=== PATIENT | female | born 1980 | race Caucasian/White ===

== ENCOUNTER 2018-08-21 15:27 | Outpatient (CLI) | payer OTHER ==
--- NOTE | 2018-08-21 17:41 | CT ---
PARANASAL SINUS CT WITH AND WITHOUT CONTRAST: INDICATION: Chronic sinusitis. FINDINGS: Frontal sinus, ethmoid sinus, maxillary sinus, and the sphenoid sinus are clear. No evidence of late ral mastoid effusion. There is leftward nasal septal deviation with associated nasal septal spur. IMPRESSION: No acute paranasal sinus inflammatory disease. POS: [facility]
== END 2018-08-21 15:28 | disposition home or self-care (01) ==
LOC: BICCT 15:27
PROVIDERS: ATTEND Obstetrics & Gynecology
DX: J32.9 Chronic sinusitis, unspecified (principal)

== ENCOUNTER 2019-10-21 08:17 | Outpatient (CLI) | payer OTHER ==
--- NOTE | 2019-10-21 10:54 | MRI ---
MRI LUMBAR SPINE WITHOUT CONTRAST: Date: 10/21/2019 HISTORY: Lumbar radiculopathy. Low back pain x15 years. COMPARISON: None. FINDINGS: Appropriate T1 marrow signal intensity of the lumbar vertebra. Lumbar spine vertebral body height is maintained. There is no fracture. No significant STIR hyperintensity to suggest vertebral body edema or ligamentous injury. Visualized solid organs have appropriate signal intensity. Appropriate signal intensity of the visual ized paraspinal muscles. Conus medullaris terminates at the mid to lower aspect of T12. T12-L1: Adequate disc hydration. No significant central canal stenosis or significant neural foramin al narrowing. L1-L2: Adequate disc hydration. No significant central canal stenosis or significant neural foramina l narrowing. L2-L3: Adequate disc hydration. No significant central canal stenosis or significant neural foramina l narrowing. L3-L4: Adequate disc hydration. No significant central canal stenosis or significant neural foramina l narrowing. L4-L5: Adequate disc hydration. No significant loss of disc space height. Broad based disc bulge min imally contacts the thecal sac. No significant central canal stenosis or significant neural foraminal narrowing. L5-S1: Disc desiccation with mild loss of disc space height. There is a broad based disc bulge with a left subarticular component. There is a subtle T2 and STIR hyperintensity involving the posterior m idline annulus, compatible with a small annular fissure. No significant stenosis of the thecal sac or significant stenosis of the right subarticular zone. Disc material abuts, but does not obscure the t raversing left S1 nerve root. Bilaterally, neural foramina are patent. IMPRESSION: 1. Disc desiccation with mild loss of disc space height at L5-S1. Associated midline annular fissure . 2. Disc material encroaches upon the left subarticular zone and abuts the traversing left S1 nerve r oot without significant mass effect or obscuration. POS: [facility]
== END 2019-10-21 08:18 | disposition home or self-care (01) ==
LOC: BICMRI 08:17
PROVIDERS: ATTEND Chiropractor
DX: M99.01 Segmental and somatic dysfunction of cervical region (principal); M99.02 Segmental and somatic dysfunction of thoracic region; M99.03 Segmental and somatic dysfunction of lumbar region; M54.16 Radiculopathy, lumbar region; Q05.7 Lumbar spina bifida without hydrocephalus
CPT/HCPCS: 72148

== ENCOUNTER 2020-02-27 05:39 | Day surgery (SDC) | payer OTHER ==
[2020-02-21 08:46] VITALS: BMI 23.8
[2020-02-24 11:16] LABS: Mean Corpuscular Hemoglobin 32.2 pg (27.0-31.0); Mean Corpuscular Volume 97.6 fL (78.0-98.0); Mean Platelet Volume 7.9 fL (7.4-10.4); Platelet Count 178 thou/uL (130-400); RBC Distribution Width 11.9 % (11.5-14.5); Red Blood Cell (RBC) Count 4.34 mill/uL (4.20-5.40); White Blood Cell (WBC) Count 6.3 thou/uL (4.8-10.8)
[2020-02-24 11:46] LABS: BHCG - Serum Negative (NEGATIVE); Pregs Control Background? CLEAR/WHITE (CLR/WHITE); Pregs Control Bar Appear? YES (CONTROL BAR)
[2020-02-25 14:00] LABS: SARS-CoV-2 MS2 Positive; SARS-CoV-2 N Gene Negative; SARS-CoV-2 S Gene Negative; SARS-CoV-2 orf1ab Negative
[2020-02-27] MEDS ORDERED: CeleCOXIB 100 MG CAP ONE (06:19)
[2020-02-27] MEDS ORDERED: Famotidine/PF 20 mg/2ml Vial ONE (06:19)
[2020-02-27] MEDS ORDERED: Gabapentin 300 MG CAP ONE (06:19)
[2020-02-27] MEDS ORDERED: Lidocaine 1% w/Epinephrine 1:100K 20 ML VIAL ONE (06:41)
[2020-02-27] MEDS ORDERED: Bupivacaine PF 0.5% 30 ML VIAL ONE (06:41)
[2020-02-27] MEDS ORDERED: Levofloxacin 500 mg/D5W 100 ml Premix Bag ONE (06:59)
[2020-02-27] MEDS ORDERED: Clindamycin/D5W 900 mg/50 ml Premix Bag ONE (06:59)
[2020-02-27] MEDS ORDERED: Midazolam HCl 2 mg/2 ml Vial ONE ×2 (07:11→07:34)
--- NOTE | 2020-02-27 07:28 | HP ---
She is schedule for surgery, 02/26. HISTORY OF PRESENT ILLNESS: Ms. Ramos is a 39-year-old white female, G2, P2 with prior vaginal deliveries x2, who has been having progressively painful menstrual cycles. She also had issues with menorrhagia. She was initially treated with Lysteda, which improved her flow than minimal, but still has significant pain prior to the onset of her menstrual cycle and was very severe, requiring 800 mg of Motrin and Tylenol with minimal improvement. She reports feeling a crampy sensation throughout the month, which exacerbates during her menstrual cycle. She has tried as noted the Lysteda, which did improve her flow, but the pain continues. She is a smoker and therefore did not feel comfortable trying control pills due to her age of 39. She has had an ultrasound performed in February 2019 for this problem showing her to have somewhat boggy-appearing uterus of length 9.7 cm with 5.23 cm and height 4.2 cm with normal-appearing endometrial thickness of 10 mm. No fibroids were seen. Both right and left ovaries were normal. Echotexture of the uterus suggested possibly adenomyosis. PAST MEDICAL HISTORY: Otherwise is negative. PAST SURGICAL HISTORY: She has had 2 spontaneous vaginal deliveries. CURRENT MEDICATIONS: Nonsteroidals as needed. SOCIAL HISTORY: She is a smoker of approximately 5 cigarettes per day over the past 10 years. Her Pap smear was reported normal in 2019. ALLERGIES: SHE REPORTS ALLERGIES TO PENICILLIN. SHE IS UNSURE, BUT APPARENTLY A RASH A YOUNG CHILD. PHYSICAL EXAMINATION: VITAL SIGNS: Height 5 feet 6 inches, weight 144 pounds, BMI 22.2, blood pressure 112/72, pulse 77 and regular, respiratory rate 18, and O2 saturations on room air 98%. HEENT: Within normal limits. CHEST: Clear to auscultation. HEART: Regular rate and rhythm. S1 and S2 heart sounds. No murmurs, rubs, or gallops. ABDOMEN: Soft, nontender, nondistended with no palpable masses. PELVIC: Vulva and vagina have no lesions. Cervix had no lesions, grossly normal. Uterus was mildly enlarged, boggy, and tender on exam. Adnexa were nontender with no masses. ASSESSMENT: A 39-year-old white female, G2, P2, with severe dysmenorrhea and menorrhagia. Suspect the adenomyosis of the uterus. The patient is desiring definitive surgical therapy. She has failed medical management of Lysteda and nonsteroidals for the pain. PLAN: She is set for robotic HEATHER on 02/26. Risks and benefits of surgery have been discussed in detail. Job ID: [id number]
[2020-02-27] MEDS ORDERED: Fentanyl 250 MCG/5 ML VIAL ONE (07:34)
[2020-02-27] MEDS ORDERED: Morphine 4 MG/ML VIAL SLOW IVP PRN (09:49)
[2020-02-27] MEDS ORDERED: Zolpidem Tartrate 5 MG TAB PO PRN (09:49)
[2020-02-27] MEDS ORDERED: traMADol HCl 50 MG TAB PO PRN (09:49)
[2020-02-27] MEDS ORDERED: Promethazine HCl 25 MG/ML VIAL IM PRN ×2 (09:49→09:59)
[2020-02-27] MEDS ORDERED: HYDROcodone/Acetaminophen 5/325 mg Tablet PO PRN ×2 (09:49)
[2020-02-27] MEDS ORDERED: Simethicone Chewable 80 MG TAB PO PRN (09:49)
[2020-02-27] MEDS ORDERED: Ondansetron PF 4 MG/2 ML Vial IVP PRN (09:49)
[2020-02-27] MEDS ORDERED: diphenhydrAMINE 25 MG CAP PO PRN (09:49)
[2020-02-27] MEDS ORDERED: Ondansetron HCl/PF 4 MG/2 ML Vial IVP PRN (09:59)
[2020-02-27] MEDS ORDERED: Promethazine HCl 25 MG/ML VIAL SLOW IVP PRN (09:59)
[2020-02-27] MEDS ORDERED: Sodium Chloride 0.9% 1,000 ML IV SCH (10:00)
[2020-02-27] MEDS ORDERED: Fentanyl 100 MCG/2 ML VIAL ONE (10:29)
[2020-02-27] MEDS ORDERED: PROPOFOL 200 MG/20 ML VIAL ONE (11:39)
[2020-02-27] MEDS ORDERED: Rocuronium Bromide 10 MG/ML (10ML VIAL) ONE (11:39)
[2020-02-27] MEDS ORDERED: Dexamethasone 20 MG/5 ML VIAL ONE (11:39)
[2020-02-27] MEDS ORDERED: Ondansetron PF 4 MG/2 ML Vial ONE (11:39)
[2020-02-27] MEDS ORDERED: Lidocaine 1% PF 5 ML VIAL ONE (11:39)
[2020-02-27] MEDS ORDERED: Glycopyrrolate 0.2 MG/ML 5 ML SYRINGE ONE (11:39)
[2020-02-27] MEDS ORDERED: Ketorolac Tromethamine 30 MG/ML VIAL IVP SCH (12:00)
[2020-02-27 15:47] VITALS: BP 97/65; TEMP 98.2
--- NOTE | 2020-02-27 16:24 | OP ---
DATE OF PROCEDURE: 02/27/2020 PREOPERATIVE DIAGNOSES: 1. Severe dysmenorrhea, menorrhagia, unresponsive to medical management. 2. Clinical adenomyosis of the uterus. POSTOPERATIVE DIAGNOSES: 1. Severe dysmenorrhea, menorrhagia, unresponsive to medical management. 2. Clinical adenomyosis of the uterus. PROCEDURES PERFORMED: Robotic total laparoscopic hysterectomy and bilateral salpingectomy. PHYSIATRIST SURGEON: JUDITH Torrez. ANESTHESIA: General endotracheal. ESTIMATED BLOOD LOSS: 25 mL. COMPLICATIONS: None. COUNTS: Correct x2. ANTIBIOTICS: Levaquin and clindamycin per SCIP protocol. PATHOLOGY: Uterus, cervix, and bilateral fallopian tubes. FINDINGS: 1. Normal-appearing fallopian tubes and ovaries. 2. Boggy erythematous appearing uterus, consistent with adenomyosis. 3. Clear urine present in Key catheter postprocedure and bladder was watertight to distention over 300 mL postprocedure. 4. Bilateral ureteral peristalsis visualized postprocedure and course of the ureters noted to be inferior and lateral to operative sites. DISPOSITION: Recovery room, stable. DESCRIPTION OF PROCEDURE: The patient previously received informed consent in regard to surgery. She was taken back to the operating room, where she received a general endotracheal anesthetic agent without complications. She was then placed in dorsal lithotomy position with the use of Suleman stirrups. She was prepped and draped in usual sterile fashion. Key catheter was placed at this time. A side-arm speculum was placed in the vagina. The anterior lip of cervix was grasped with a single-tooth tenaculum. The uterus sounded to 9 cm. A size 8 cm ALISSA uterine manipulator with a 4.0 cm cervical cup was then placed in usual fashion. Speculum and tenaculum were removed. Attention was then turned to the abdomen, where perspective trocar sites were infiltrated with 0.5% Marcaine with epinephrine. A 12 mm umbilical incision was made and the Veress needle was entered in the peritoneal cavity. The patient's pressure was noted to be less than 5 mm and the abdomen was insufflated to a patient's pressure of 15, approximately 4.5 L of carbon dioxide gas was instilled. Veress needle was then removed. A size 12 mm trocar was then placed through the umbilical incision. The robotic laparoscope was then introduced through the trocar sleeve, confirming proper entry. The patient was placed in Trendelenburg position and additional bilateral lower quadrant 8 mm ports were placed under laparoscopic guidance along with the right upper quadrant 11 mm assistant to the vice president port. I then broke scrub and my assistants docked the robot in usual fashion. The uterus was then elevated by my assistant to the vice president and the left fallopian tube was grasped by my assistant to the vice president with atraumatic grasper. I then proceeded to bipolar coagulate the mesosalpinx of the left fallopian tube with incision of it with monopolar scissors. The left tube was removed through the right upper quadrant assistant to the vice president port. I then coagulated the uterine ovarian ligament and then this was transected with monopolar scissors. Serial coagulation of the broad ligament was carried out until the left round ligament was reached. It was coagulated and transected, and both the anterior and posterior leaves of the broad ligament were then entered. The vesicouterine peritoneal incision was then made and then in a layering technique, the bladder was brought down in atraumatic fashion, sharply dissecting the vesicouterine peritoneum under direct visualization. We then skeletonized the left uterine vessels at the internal cervical os region and coagulated these meticulously and transected them. I then proceeded to further dissect the bladder atraumatically past the cervicovaginal margin and angle, and intermittently the bladder was distended to confirm a safe distance from the operative site. The bladder remained intact via water distention. After this was accomplished, we proceeded to carry out this in likewise fashion on the right side of the uterus. Again, the right fallopian tube was grasped by my assistant to the vice president. I coagulated the mesosalpinx and transected this with monopolar scissors and removed the right fallopian tube through the right upper quadrant assistant to the vice president port. The right utero-ovarian ligament again was coagulated and transected and serial coagulation and transection of the broad ligament hugging close to uterine specimen was carried out until the right round ligament was reached. It was coagulated and transected. Again, the anterior leaf of the broad ligament was entered and the vesicouterine peritoneum that remained was incised under direct visualization in layering technique, dropping the bladder safely past the cervicovaginal margin. We then again skeletonized the right uterine vessels meticulously and coagulated them at the internal cervical os region. The course of each ureter was noted to be inferior and lateral to the areas of dissection. Once we felt that the bladder had been adequately and safely dissected past the cervicovaginal margin, we performed the anterior colpotomy. Monopolar scissors were utilized to transect the anterior colpotomy over the cervical cup of the ALISSA uterine manipulator, started from 12 to 3 and 12 to 9 o'clock fashion. The residual uterine vessels were coagulated at the 3 and 9 o'clock positions meticulously, securing hemostasis. The posterior colpotomy was then made starting from the 6 to 9 o'clock and 6 to 3 o'clock positions, completing the colpotomy and delivering the specimen to the vaginal vault. Once the specimen had been delivered into the vaginal vault, we then had the monopolar scissors switched out for a Rohan needle limo driver. The vaginal cuff was run and any areas of bleeding were made hemostatic with bipolar fenestrated cautery and then the cuff was closed in double-layer fashion with Stratafix suture starting from the right angle to the left angle and back towards the midline. Excess suture and needle were then removed intact. After this, all the pedicle sites again were inspected and hemostasis of the pedicle sites were all confirmed. The pressure was dropped down to less than 10 mm and no areas of oozing were noted. Once this was confirmed, the pathways of each ureter were visualized with peristalsis and the path was noted to be inferior to the operative sites. We then proceeded to undock the robot, and the trocar sleeves were removed. The umbilical incision fascia was closed with a [id number] stitch of 0 Vicryl. The remaining trocar sites were closed with 4-0 Monocryl and Dermabond. The vaginal cuff was inspected and it was noted to be hemostatic with a sponge stick. The patient was awakened from anesthesia and transferred to recovery room in stable condition. Job ID: [id number]
[2020-02-27] MEDS ORDERED: Docusate 100 MG CAP PO SCH (21:00)
[2020-02-28] MEDS ORDERED: Ibuprofen 800 MG TAB PO SCH (06:00)
== END 2020-02-27 16:56 | disposition home or self-care (01) ==
LOC: SDC 05:39 → 3SE 09:48 → SDC 16:56
PROVIDERS: ATTEND Obstetrics & Gynecology
PROC: 0UT94ZZ Resection of Uterus, Percutaneous Endoscopic Approach (ICD-10-PCS; principal; 2020-02-27)
PROC: 0UT74ZZ Resection of Bilateral Fallopian Tubes, Percutaneous Endoscopic Approach (ICD-10-PCS; principal; 2020-02-27)
DX: N80.0 Endometriosis of uterus (principal); N88.8 Other specified noninflammatory disorders of cervix uteri; N72 Inflammatory disease of cervix uteri; F17.210 Nicotine dependence, cigarettes, uncomplicated; Z88.0 Allergy status to penicillin
CPT/HCPCS: 36415; 84703; 85027; 86850; 86900; 86901; 87635; 88307; J0690; J1100; J1885; J1956; J2250; J2405; J2704; J3010; J3490; S0020; S0028; U0003

== ENCOUNTER 2022-09-19 09:13 | Outpatient (CLI) | payer OTHER | END 2022-09-19 09:14 | disposition home or self-care (01) | LOC: BICMAMMO 09:13 | PROVIDERS: ATTEND Obstetrics & Gynecology | DX: N63.10 Unspecified lump in the right breast, unspecified quadrant (principal) | CPT/HCPCS: 77066; G0279 ==

== ENCOUNTER 2024-01-18 12:34 | Outpatient (CLI) | payer OTHER | END 2024-01-18 12:35 | disposition home or self-care (01) | LOC: BICMAMMO 12:34 | PROVIDERS: ATTEND Registered Nurse | DX: Z12.31 Encounter for screening mammogram for malignant neoplasm of breast (principal) | CPT/HCPCS: 77063; 77067 ==